=== PATIENT | female | born 1970 | race Hispanic/Latino ===

== ENCOUNTER 2017-01-05 01:37 | Emergency (ER) | payer SELFPAY ==
--- NOTE | 2017-01-05 01:54 | ED PDOC ---
HPI: Psych/Substance Abuse Time Seen by Provider: 01/05/17 01:39 Chief Complaint (Nursing): Anxiety Chief Complaint (Provider): medical and psych clearance History Per: Patient History/Exam Limitations: no limitations Onset/Duration Of Symptoms: Mins Current Symptoms Are (Timing): Still Present Additional Complaint(s): 46yo female presents to the ED for medical and psych clearance. Patient has multiple chronic conditions including breast cancer and psych problems. Denies SI or HI, but states she occasionally thinks about cutting her wrists. Past Medical History Reviewed: Historical Data, Nursing Documentation, Vital Signs Vital Signs: Last Vital Signs Temp 98.4 F 01/05/17 01:42 Pulse 78 01/05/17 01:42 Resp 16 01/05/17 01:42 BP 175/108 H 01/05/17 01:42 Pulse Ox 100 01/05/17 01:42 - Medical History PMH: Anxiety Other PMH: breast cancer - Surgical History Surgical History: No Surg Hx - Family History Family History: States: No Known Family Hx - Home Medications Home Medications: Ambulatory Orders Medication Instructions Recorded No Known Home Med 01/05/17 - Allergies Allergies/Adverse Reactions: Allergies Allergy/AdvReac Type Severity Reaction Status Date / Time bee pollen Allergy ANAPHYLAXIS Verified 01/05/17 01:42 peanut Allergy RASH Verified 01/05/17 01:42 Review of Systems ROS Statement: Except As Marked, All Systems Reviewed And Found Negative Psych: Positive for: Other (no HI ). Negative for: Suicidal ideation Physical Exam - Reviewed Nursing Documentation Reviewed: Yes Vital Signs Reviewed: Yes - Physical Exam Appears: Positive for: Well, No Acute Distress (tearful ) Head Exam: Positive for: ATRAUMATIC, NORMAL INSPECTION, NORMOCEPHALIC Skin: Positive for: Normal Color, Warm, Dry Eye Exam: Positive for: Normal appearance, EOMI, PERRL ENT: Positive for: Normal ENT Inspection Neck: Positive for: Normal, Painless ROM, Supple Cardiovascular/Chest: Positive for: Regular Rate, Rhythm. Negative for: Murmur , Tachycardia Respiratory: Positive for: Normal Breath Sounds. Negative for: Wheezing, Respiratory Distress Gastrointestinal/Abdominal: Positive for: Normal Exam, Bowel Sounds, Soft. Negative for: Tenderness Back: Positive for: Normal Inspection Extremity: Positive for: Normal ROM. Negative for: Deformity, Swelling Neurologic/Psych: Positive for: Alert, Oriented - ECG O2 Sat by Pulse Oximetry: 100 Pulse Ox Interpretation: Normal (RA) Medical Decision Making Medical Decision Makin: Impression: medically clear for psych eval Plan: crisis eval accucheck [id number]: Patient medically cleared and psychiatrically cleared by Dr. Madrid with Dx of adjustment disorder. Scribe Attestation: Documented by Marsha Allred acting as a scribe for Iggy Lemos MD. Provider Scribe Attestation: All medical record entries made by the Scribe were at my direction and personally dictated by me. I have reviewed the chart and agree that the record accurately reflects my personal performance of the history, physical exam, medical decision making, and the department course for this patient. I have also personally directed, reviewed, and agree with the discharge instructions and disposition. Disposition - Clinical Impression Clinical Impression: Adjustment disorder - Patient ED Disposition Is Patient to be Admitted: No - Disposition Referrals: [facility] [Outside] Disposition Time: 02:34 Condition: STABLE Additional Instructions: Patient is medically and psychiatrically cleared for incarceration. Instructions: Mood Disorders (ED), Suicide Prevention for Adults (ED)
[2017-01-05 02:00] VITALS: BP 175/108; PULSE 78; RESP 16; TEMP 98.4; O2SAT 100
== END 2017-01-05 02:52 ==
LOC: H.ER 01:37
DX: F43.20 Adjustment disorder, unspecified (principal); Z85.3 Personal history of malignant neoplasm of breast; F41.9 Anxiety disorder, unspecified